=== PATIENT | female | born 1980 | race Caucasian/White ===

== ENCOUNTER 2018-08-07 10:35 | Inpatient (IN) | payer OTHER ==
[~2018-08-07] VITALS: Ht 168 cm; Wt 67.1 kg
[~2018-08-07 10:35] MED LIST: RINGERS SOLUTION,LACTATED 1,000 ML IV ONE
[2018-08-07] MEDS ORDERED: CITRIC ACID/SODIUM CITRATE 30 ML SOLUTION UDCUP PO ONE (10:45)
[2018-08-07] MEDS ORDERED: METOCLOPRAMIDE HCL 5 MG/ML 2 ML VIAL IVP ONE (10:45)
[2018-08-07] MEDS ORDERED: TRIAMCINOLONE ACETONIDE 40 MG/ML VIAL IM ONE (10:45)
[2018-08-07] MEDS ORDERED: PREN1TAB80 PO (10:48)
[2018-08-07 11:08] VITALS: BP 116/63
[2018-08-07] MEDS ORDERED: RINGERS SOLUTION,LACTATED 1,000 ML IV ONE ×2 (11:22→14:07)
[2018-08-07] MEDS ORDERED: SODIUM CHLORIDE 0.9% 1,000 ML IV ONE (11:22)
[2018-08-07] MEDS ORDERED: BUPIVACAINE HCL/DEX-WATER/PF 0.75% 2 ML AMP ONE (11:22)
[2018-08-07 11:27] LABS: BASOPHILS % (AUTO) 0.3 % (0.0-2.0); EOSINOPHILS % (AUTO) 0.3 % (1.0-6.0); HEMOGLOBIN 11.3 g/dL (12.0-16.0); LYMPHOCYTES # (AUTO) 1.4 K/uL (1.0-4.8); LYMPHOCYTES % (AUTO) 17.5 % (22.0-44.0); MEAN CORPUSCULAR HEMOGLOBIN 32.5 pg (26.0-34.0); MEAN CORPUSCULAR HGB CONC 34.4 G/dL (31.0-37.0); MEAN CORPUSCULAR VOLUME 95 fL (80-100); MONOCYTES # (AUTO) 0.5 K/uL (0.1-1.0); MONOCYTES % (AUTO) 6.2 % (2.0-9.0); NEUTROPHILS # (AUTO) 6.2 K/uL (1.8-7.7); NEUTROPHILS % (AUTO) 75.7 % (40.0-70.0); PLATELET COUNT (AUTO) 189 K/uL (150-450); RED BLOOD CELL COUNT(AUTO) 3.49 MIL/uL (4.00-5.20); RED CELL DISTRIBUTION WIDTH 13.3 % (11.5-14.5)
[2018-08-07] MEDS ORDERED: TRIAMCINOLONE ACETONIDE 40 MG/ML VIAL ONE (11:50)
[2018-08-07] MEDS ORDERED: GUM MASTIC/STORAX/MSAL/ALCOHOL LIQUID 0.67 ML VIAL TP ONE (11:54)
[2018-08-07] MEDS ORDERED: MORPHINE SULFATE/PF 0.5 MG/ML 10 ML AMP IVP ONE (12:00)
[2018-08-07] MEDS ORDERED: 0.9% SODIUM CHLORIDE 10 ML VIAL IVP ONE (12:00)
[2018-08-07] MEDS ORDERED: EPHEDrine SULFATE 50 MG/ML VIAL IM ONE (12:00)
[2018-08-07] MEDS ORDERED: ONDANSETRON HCL 4 MG/2 ML VIAL IVP ONE (12:00)
[2018-08-07] MEDS ORDERED: KETOROLAC TROMETHAMINE 60 MG/2 ML VIAL IM ONE (12:00)
[2018-08-07] MEDS ORDERED: FentaNYL CITRATE-PF 100 MCG/2 ML VIAL IVP ONE (12:00)
[2018-08-07] MEDS ORDERED: FentaNYL CITRATE-PF 100 MCG/2 ML VIAL IVP PRN ×2 (13:00→14:30)
[2018-08-07] MEDS ORDERED: HYDROmorphone 2 MG/ML SYRINGE IVP PRN (13:00)
[2018-08-07] MEDS ORDERED: MEPERIDINE-PF 25 MG/ML VIAL IVP PRN (13:00)
[2018-08-07] MEDS ORDERED: ACETAMINOPHEN 1000 MG/ISO-OSM 100 ML IV ONE (14:06)
[2018-08-07] MEDS: ACETAMINOPHEN 1000 MG/ISO-OSM 100 ML IV SCH ×2 (14:08→22:09)
[2018-08-07] MEDS ORDERED: NALOXONE HCL 0.4 MG/ML VIAL IVP PRN (14:30)
[2018-08-07] MEDS ORDERED: DiphenhydrAMINE HCL 50 MG/ML VIAL IVP PRN (14:30)
[2018-08-07] MEDS ORDERED: ONDANSETRON HCL 4 MG/2 ML VIAL IVP PRN (14:30)
[2018-08-07] MEDS ORDERED: MORPHINE SULFATE 10 MG/ML SYRINGE IVP PRN (14:30)
[2018-08-07] MEDS ORDERED: NALBUPHINE HCL 10 MG/ML VIAL IVP PRN ×2 (14:30)
[2018-08-07] MEDS ORDERED: RINGERS SOLUTION,LACTATED 1,000 ML IV SCH (14:36)
[2018-08-07] MEDS ORDERED: OXYTOCIN 30 UNITS/LACT RINGERS 500 ML IV ONE (14:36)
[2018-08-07] MEDS ORDERED: OxyCODONE HCL/ACETAMINOPHEN 5-325 MG TABLET PO PRN ×2 (14:45)
[2018-08-07] MEDS ORDERED: LANOLIN 7 GM OINTMENT TP PRN (14:45)
[2018-08-07] MEDS: KETOROLAC TROMETHAMINE 30 MG/ML VIAL IVP SCH (18:39)
[2018-08-07] MEDS ORDERED: OXYGEN THERAPY IH SCH ×3 (20:00)
[2018-08-07] MEDS ORDERED: MAGNESIUM HYDROXIDE SUSPENSION 30 ML UDCUP PO SCH (21:00)
[2018-08-08] MEDS: KETOROLAC TROMETHAMINE 30 MG/ML VIAL IVP SCH (00:57)
[2018-08-08 05:46] LABS: BASOPHILS % (AUTO) 0.2 % (0.0-2.0); EOSINOPHILS % (AUTO) 0 % (1.0-6.0); HEMATOCRIT 26.2 % (36-46); HEMOGLOBIN 9.4 g/dL (12.0-16.0); LYMPHOCYTES # (AUTO) 1.2 K/uL (1.0-4.8); LYMPHOCYTES % (AUTO) 11.4 % (22.0-44.0); MEAN CORPUSCULAR HEMOGLOBIN 33.2 pg (26.0-34.0); MEAN CORPUSCULAR HGB CONC 35.7 G/dL (31.0-37.0); MEAN CORPUSCULAR VOLUME 93 fL (80-100); MONOCYTES # (AUTO) 0.6 K/uL (0.1-1.0); MONOCYTES % (AUTO) 5.8 % (2.0-9.0); NEUTROPHILS # (AUTO) 9.1 K/uL (1.8-7.7); NEUTROPHILS % (AUTO) 82.6 % (40.0-70.0); PLATELET COUNT (AUTO)-OB 167 K/uL (150-450); RED BLOOD CELL COUNT(AUTO) 2.82 MIL/uL (4.00-5.20); RED CELL DISTRIBUTION WIDTH 13.6 % (11.5-14.5)
[2018-08-08] MEDS: IBUPROFEN 800 MG TABLET PO PRN ×2 (13:41→23:30)
[2018-08-09] MEDS: IBUPROFEN 800 MG TABLET PO PRN (19:23)
[2018-08-10] MEDS: IBUPROFEN 800 MG TABLET PO PRN ×2 (01:06→08:53)
[2018-08-10] MEDS ORDERED: IBUP-2071 PO (10:04)
[2018-08-10] MEDS ORDERED: ACET-66 PO (10:06)
[2018-08-10] MEDS ORDERED: FERR-89 PO (10:06)
== END 2018-08-10 11:55 | disposition home or self-care (01) | DRG 785 ==
LOC: 4S 10:35 → OBSVTOIN 10:35 → 4S 10:36
PROVIDERS: ADMIT Obstetrics & Gynecology; ATTEND Obstetrics & Gynecology
PROC: 10D00Z1 Extraction of Products of Conception, Low, Open Approach (ICD-10-PCS; principal; 2018-08-07)
PROC: 0UL70ZZ Occlusion of Bilateral Fallopian Tubes, Open Approach (ICD-10-PCS; 2018-08-07)
DX: O69.81X0 Labor and delivery complicated by cord around neck, without compression, not applicable or unspecified (principal); Z3A.40 40 weeks gestation of pregnancy; Z37.0 Single live birth; O34.211 Maternal care for low transverse scar from previous cesarean delivery; Z30.2 Encounter for sterilization
CPT/HCPCS: 86850; 86900; 86901; 87081; 88302; 90686; J0131; J0690; J1885; J2274; J2300; J2405; J2765; J3010; J3301; J3490; J7030; J7120